=== PATIENT | female | born 1940 | race Caucasian/White ===

== ENCOUNTER → 2018-03-08 | Outpatient (CLI) | payer MEDICARE, OTHER ==
--- NOTE | 2018-03-08 12:12 | US ---
EXAM DESCRIPTION: Soft Tissue,Head/Neck: ULTRASOUND. CLINICAL HISTORY: 77 years Female LOCALIZED SWELLING MASS AND LUMP COMPARISON: None Available. TECHNIQUE: Transcutaneous scanning: -scale and Doppler modes. FINDINGS: Heterogeneous hypoechoic mass in the left submandibular region. Circumscribed and lobulated margins and minimal vascularity. Dimensions 4.1 x 2.9 x 3.4 cm. No parallel features. Minimal posterior enhancement features. The left submandibular gland is not visualized separately. No distinct cyst. No large calcifications or parenchymal edema. No overlying skin changes. Cystic elongated structure in the right submandibular gland measuring 10.6 x 11.2 x 3.9 mm. Wider than tall with posterior enhancement features. Well-circumscribed margin. No dominant solid mass, no large calcifications parenchymal edema. No overlying skin changes. Normal vascularity. IMPRESSION: 1. Abnormal lymph node in the left submandibular region versus abnormal left submandibular gland. Consider ultrasound-guided tissue sampling and aspiration as well as CT scan of the neck soft tissues without and with IV contrast. 2. Cystic changes in the right submandibular gland. Electronically signed by: Ziggy Avitia MD 03/08/2018 12:[address] [facility]
== END ==
LOC: US 09:14
PROVIDERS: ATTEND Nurse Practitioner Family
DX: R22.0 Localized swelling, mass and lump, head (principal)

== ENCOUNTER → 2018-03-09 | Outpatient (CLI) | payer MEDICARE, OTHER ==
--- NOTE | 2018-03-09 13:04 | CT ---
EXAM DESCRIPTION: Soft Tissue Neck w/Contrast CLINICAL HISTORY: 77 years Female, MASS OF SUBMANDIBULAR NECK REGION COMPARISON: Ultrasound March 08, 2018 TECHNIQUE: CT soft tissue neck was performed with IV contrast. This exam was performed according to our departmental dose-optimization program, which includes automated exposure control, adjustment of the mA and/or kV according to patient size and/or use of iterative reconstruction technique. FINDINGS: Again seen is an ovoid slightly lobulated solid mass in the left submandibular region measuring up to 5 cm transverse by 3.5 cm AP by 3.2 cm craniocaudal. The lesion contains some internal calcification, curvilinear enhancement or internal vascularity. Medially, it abuts and results in mass effect on the left submandibular gland. Laterally, it lies just deep to the skin surface and platysma muscle. Posteriorly, it lies just anterior to the left sternocleidomastoid muscle, left internal jugular vein and left internal and external carotid arteries. The mass abuts the left mandibular body along its anterior and superior margins without bony destruction. No left or right-sided cervical adenopathy. Minimal subcutaneous soft tissue edema is noted along its inferior margin. No submandibular or supraclavicular adenopathy. The left thyroid lobe is enlarged with probable nodules in both thyroid lobes, the largest measuring just over 2 cm diameter and the left thyroid lobe. Visualized portions of the upper mediastinum are otherwise unremarkable. No apical lung lesion. Mild mucoperiosteal thickening in the right maxillary sinus. IMPRESSION: Solid 5 cm left submandibular mass as detailed above. Differential considerations include hematoma or neoplasm, and the lesion would be amenable to percutaneous biopsy. Enlarged thyroid with probable poorly defined bilateral thyroid nodules measuring up to 2 cm diameter. Ultrasound is recommended for further evaluation. No cervical adenopathy. Electronically signed by: Stan High MD 03/09/2018 1:03 PM [employer]
== END ==
LOC: CT 11:00
PROVIDERS: ATTEND Nurse Practitioner Family
DX: R22.1 Localized swelling, mass and lump, neck (principal); E04.9 Nontoxic goiter, unspecified